=== PATIENT | female | born 1935 | race African-American/Black ===

== ENCOUNTER 2021-01-10 10:44 | Inpatient (IN) | payer MEDICARE, OTHER ==
[2021-01-10 12:25] LABS: BASO % 0.3 % (0-2.0); HEMATOCRIT 43.2 % (32.4-45.2); HEMOGLOBIN 14.5 GM/dL (10.7-15.3); MCH 31.1 pg (25.7-33.7); MCHC 33.6 g/dl (32.0-36.0); MEAN CELL VOLUME 92.6 fl (80-96); MEAN PLT VOLUME 9.3 fl (7.5-11.1); NEUT % 82.7 % (42.8-82.8); PLATELET COUNT 242 K/MM3 (134-434); RBC 4.66 M/mm3 (3.60-5.2); RDW 13.2 % (11.6-15.6); WHITE BLOOD COUNT 7.1 K/mm3 (4.0-10.0)
[2021-01-10 12:28] LABS: EPI CELLS >36 /uL (0-25.1); HYALINE CASTS 9 /uL (0-3.1); URINE APPEARANCE CLOUDY; URINE BACTERIA 374 /uL (0-1359); URINE BILIRUBIN NEGATIVE (NEGATIVE); URINE COLOR YELLOW; URINE GLUCOSE (UA) NEGATIVE (NEGATIVE); URINE KETONE TRACE (NEGATIVE); URINE LEUK ESTERASE TRACE (NEGATIVE); URINE NITRITE NEGATIVE (NEGATIVE); URINE PROTEIN TRACE (NEGATIVE); URINE RBC 68 /uL (0-23.9); URINE UROBILINOGEN 4.0 E.U/dl mg/dL (0.2-1.0); URINE WBC 33 /uL (0-25.8)
[2021-01-10 12:49] LABS: CHLORIDE 92 mmol/L (98-107); SODIUM 136 mmol/L (136-145)
[2021-01-10 12:50] LABS: CALCIUM 9.5 mg/dL (8.5-10.1)
[2021-01-10 12:51] LABS: ALBUMIN 3.2 g/dl (3.4-5.0); BLOOD UREA NITROGEN 8.8 mg/dL (7-18); CO2 37 mmol/L (21-32); GLUCOSE,RANDOM 166 mg/dL (74-106)
[2021-01-10 12:54] LABS: CREATININE 0.7 mg/dL (0.55-1.3); SGOT/AST 18 U/L (15-37); SGPT/ALT 13 U/L (13-61)
[2021-01-10 12:56] LABS: BILIRUBIN,TOTAL 0.7 mg/dL (0.2-1)
[2021-01-10 12:57] LABS: ALK PHOS 98 U/L (45-117)
[2021-01-10 12:59] LABS: N-TERMINAL BNP 112.2 pg/ml (5-450)
[2021-01-10 13:12] LABS: ANION GAP 7 MMOL/L (8-16)
[2021-01-10] MEDS ORDERED: SODIUM CHLORIDE 1,000 ML IV STA (13:23)
[2021-01-10] MEDS ORDERED: ONDANSETRON 4 MG/2 ML VIAL IVPB ONE (13:24)
[2021-01-10] MEDS ORDERED: POTASSIUM CHLORIDE TABS 20 MEQ TABLET.ER (FP) PO ONE ×3 (13:24→14:26)
[2021-01-10] MEDS ORDERED: POTASSIUM CHLORIDE 20 MEQ PREMIX IVPB 100 ML IVPB ONE (13:24)
[2021-01-10] MEDS ORDERED: KCL 10 MEQ IVPB 20 MEQ/200 ML INFUS.BAG IVPB ONE (14:17)
[2021-01-10] MEDS ORDERED: ONDANSETRON 4 MG/2 ML VIAL ONE (14:17)
[2021-01-10] MEDS ORDERED: CEFTRIAXONE 1,000 MG in DEXTROSE 5%-WATER - 50 ML IVPB ONE (18:50)
[2021-01-10] MEDS ORDERED: CEFTRIAXONE 1 GM/50 ML BAG ONE (19:36)
[2021-01-10] MEDS: DEXTROSE 5%-0.45% SALINE 1,000 ML IV SCH (23:10)
[2021-01-11 08:05] LABS: BASO % 0.5 % (0-2.0); EOS % 0.3 % (0-4.5); HEMATOCRIT 37.1 % (32.4-45.2); HEMOGLOBIN 12.6 GM/dL (10.7-15.3); LYMPH % 18.3 % (8-40); MCH 31.5 pg (25.7-33.7); MEAN CELL VOLUME 92.5 fl (80-96); MEAN PLT VOLUME 9.4 fl (7.5-11.1); MONO % 9.6 % (3.8-10.2); NEUT % 71.3 % (42.8-82.8); PLATELET COUNT 209 K/MM3 (134-434); RBC 4.01 M/mm3 (3.60-5.2); RDW 13.3 % (11.6-15.6); WHITE BLOOD COUNT 6.8 K/mm3 (4.0-10.0)
[2021-01-11 08:12] LABS: CALCIUM 8.7 mg/dL (8.5-10.1)
[2021-01-11 08:13] LABS: ALBUMIN 2.8 g/dl (3.4-5.0)
[2021-01-11 08:16] LABS: CREATININE 0.6 mg/dL (0.55-1.3)
[2021-01-11 08:17] LABS: BILIRUBIN,TOTAL 0.6 mg/dL (0.2-1); TOT PROT 5.9 g/dl (6.4-8.2)
[2021-01-11] MEDS ORDERED: cefTRIAXone SODIUM 1 GM VIAL ONE (08:49)
[2021-01-11] MEDS ORDERED: DEXTROSE 5%-WATER - 50 ML IVPB ONE (08:50)
[2021-01-11] MEDS ORDERED: POTASSIUM CHLORIDE TABS 20 MEQ TABLET.ER (FP) PO ONE (09:15)
[2021-01-11] MEDS: ENOXAPARIN NA (PORCINE) 40 MG/0.4 ML DISP.SYRIN SQ SCH (09:21)
[2021-01-11] MEDS ORDERED: FLU VACCINE (FLULAVAL) PF 60 MCG/0.5 ML SYRINGE 2020-2021 IM ONE (10:00)
[2021-01-11] MEDS ORDERED: CEFTRIAXONE 1 GM in DEXTROSE 5%-WATER - 50 ML IVPB SCH (10:00)
[2021-01-11] MEDS: POLYETHYLENE GLYCOL 3350 119 GM BTL PO SCH (17:21)
[2021-01-11] MEDS: DEXTROSE 5%-0.45% SALINE 1,000 ML IV SCH (17:22)
[2021-01-11] MEDS: ONDANSETRON 4 MG/2 ML VIAL IVPUSH PRN (17:24)
[2021-01-12 08:18] LABS: BASO % 0.6 % (0-2.0); EOS % 0.6 % (0-4.5); HEMATOCRIT 36.7 % (32.4-45.2); HEMOGLOBIN 12.6 GM/dL (10.7-15.3); MCH 31.9 pg (25.7-33.7); MCHC 34.4 g/dl (32.0-36.0); MEAN CELL VOLUME 92.8 fl (80-96); MEAN PLT VOLUME 8.8 fl (7.5-11.1); NEUT % 63.8 % (42.8-82.8); PLATELET COUNT 227 K/MM3 (134-434); RBC 3.96 M/mm3 (3.60-5.2); RDW 13.4 % (11.6-15.6); WHITE BLOOD COUNT 6.3 K/mm3 (4.0-10.0)
[2021-01-12 08:41] LABS: ALBUMIN 2.7 g/dl (3.4-5.0); BLOOD UREA NITROGEN 6.6 mg/dL (7-18)
[2021-01-12 08:42] LABS: CALCIUM 8.6 mg/dL (8.5-10.1)
[2021-01-12 08:44] LABS: CREATININE 0.7 mg/dL (0.55-1.3)
[2021-01-12 08:46] LABS: BILIRUBIN,TOTAL 0.5 mg/dL (0.2-1); TOT PROT 5.9 g/dl (6.4-8.2)
[2021-01-12] MEDS: POLYETHYLENE GLYCOL 3350 119 GM BTL PO SCH (09:01)
[2021-01-12] MEDS: ENOXAPARIN NA (PORCINE) 40 MG/0.4 ML DISP.SYRIN SQ SCH (09:01)
[2021-01-12] MEDS ORDERED: POTASSIUM CHLORIDE TABS 20 MEQ TABLET.ER (FP) PO ONE (13:30)
[2021-01-12 14:50] VITALS: BMI 34.2
[2021-01-12] MEDS: AMINO ACIDS/PROTEIN HYDROLYS 30 ML LIQUID.PKT PO SCH (17:27)
[2021-01-12] MEDS: BACITRACIN 15 GM TUBE TOPICAL OINTMENT TP SCH (21:35)
[2021-01-13 08:23] LABS: EOS % 0.5 % (0-4.5); HEMOGLOBIN 12.9 GM/dL (10.7-15.3); LYMPH % 26.5 % (8-40); MCH 31.8 pg (25.7-33.7); MEAN CELL VOLUME 93.4 fl (80-96); MEAN PLT VOLUME 8.9 fl (7.5-11.1); MONO % 9.4 % (3.8-10.2); NEUT % 62.6 % (42.8-82.8); PLATELET COUNT 230 K/MM3 (134-434); RBC 4.07 M/mm3 (3.60-5.2); RDW 13.5 % (11.6-15.6); WHITE BLOOD COUNT 6.5 K/mm3 (4.0-10.0)
[2021-01-13 08:46] LABS: ALBUMIN 2.9 g/dl (3.4-5.0); CALCIUM 9.4 mg/dL (8.5-10.1)
[2021-01-13 08:47] LABS: BLOOD UREA NITROGEN 13.2 mg/dL (7-18)
[2021-01-13 08:51] LABS: BILIRUBIN,TOTAL 0.6 mg/dL (0.2-1); CREATININE 0.7 mg/dL (0.55-1.3); TOT PROT 6.4 g/dl (6.4-8.2)
[2021-01-13] MEDS: AMINO ACIDS/PROTEIN HYDROLYS 30 ML LIQUID.PKT PO SCH ×2 (09:05→16:49)
[2021-01-13] MEDS: ENOXAPARIN NA (PORCINE) 40 MG/0.4 ML DISP.SYRIN SQ SCH (09:06)
[2021-01-13] MEDS: POLYETHYLENE GLYCOL 3350 119 GM BTL PO SCH (09:06)
[2021-01-13] MEDS: MULTIVITAMINS THER W-MINERALS COMBO TABLET (FP) PO SCH (09:07)
[2021-01-13] MEDS: BACITRACIN 15 GM TUBE TOPICAL OINTMENT TP SCH ×2 (09:08→21:17)
[2021-01-13] MEDS: MAG HYDROX/AL HYDROX/SIMETH 30 ML UNIT-DOSE CUP PO PRN (15:35)
[2021-01-14] MEDS: ENOXAPARIN NA (PORCINE) 40 MG/0.4 ML DISP.SYRIN SQ SCH (10:49)
[2021-01-14] MEDS: POLYETHYLENE GLYCOL 3350 119 GM BTL PO SCH (10:49)
[2021-01-14] MEDS: AMINO ACIDS/PROTEIN HYDROLYS 30 ML LIQUID.PKT PO SCH ×2 (10:49→16:49)
[2021-01-14] MEDS: MULTIVITAMINS THER W-MINERALS COMBO TABLET (FP) PO SCH (10:49)
[2021-01-14] MEDS: BACITRACIN 15 GM TUBE TOPICAL OINTMENT TP SCH ×2 (10:49→22:23)
[2021-01-15] MEDS: ENOXAPARIN NA (PORCINE) 40 MG/0.4 ML DISP.SYRIN SQ SCH (10:36)
[2021-01-15] MEDS: AMINO ACIDS/PROTEIN HYDROLYS 30 ML LIQUID.PKT PO SCH ×2 (10:36→17:38)
[2021-01-15] MEDS: BACITRACIN 15 GM TUBE TOPICAL OINTMENT TP SCH ×2 (10:36→22:08)
[2021-01-15] MEDS: MULTIVITAMINS THER W-MINERALS COMBO TABLET (FP) PO SCH (10:37)
[2021-01-15] MEDS: POLYETHYLENE GLYCOL 3350 119 GM BTL PO SCH (10:37)
[2021-01-15] MEDS: MAG HYDROX/AL HYDROX/SIMETH 30 ML UNIT-DOSE CUP PO PRN (17:42)
[2021-01-15] MEDS ORDERED: PT OWN MED DRAWER 7, Y5N ONE (22:00)
[2021-01-16] MEDS: AMINO ACIDS/PROTEIN HYDROLYS 30 ML LIQUID.PKT PO SCH ×2 (10:36→16:53)
[2021-01-16] MEDS: ENOXAPARIN NA (PORCINE) 40 MG/0.4 ML DISP.SYRIN SQ SCH (10:37)
[2021-01-16] MEDS: BACITRACIN 15 GM TUBE TOPICAL OINTMENT TP SCH ×2 (10:37→21:18)
[2021-01-16] MEDS: MULTIVITAMINS THER W-MINERALS COMBO TABLET (FP) PO SCH (10:38)
[2021-01-16] MEDS: POLYETHYLENE GLYCOL 3350 119 GM BTL PO SCH (10:38)
[2021-01-17 08:23] LABS: BASO % 0.8 % (0-2.0); EOS % 0.4 % (0-4.5); HEMATOCRIT 39.2 % (32.4-45.2); HEMOGLOBIN 13.4 GM/dL (10.7-15.3); LYMPH % 24.3 % (8-40); MCH 31.9 pg (25.7-33.7); MCHC 34.1 g/dl (32.0-36.0); MEAN CELL VOLUME 93.5 fl (80-96); MEAN PLT VOLUME 9.2 fl (7.5-11.1); NEUT % 66.5 % (42.8-82.8); PLATELET COUNT 231 K/MM3 (134-434); RBC 4.19 M/mm3 (3.60-5.2); RDW 13.6 % (11.6-15.6); WHITE BLOOD COUNT 6.7 K/mm3 (4.0-10.0)
[2021-01-17 08:29] LABS: CALCIUM 9.6 mg/dL (8.5-10.1)
[2021-01-17 08:30] LABS: BLOOD UREA NITROGEN 21.6 mg/dL (7-18)
[2021-01-17 08:33] LABS: CREATININE 0.6 mg/dL (0.55-1.3)
[2021-01-17 08:34] LABS: BILIRUBIN,TOTAL 0.4 mg/dL (0.2-1); TOT PROT 6.8 g/dl (6.4-8.2)
[2021-01-17] MEDS: POLYETHYLENE GLYCOL 3350 119 GM BTL PO SCH (11:23)
[2021-01-17] MEDS: ENOXAPARIN NA (PORCINE) 40 MG/0.4 ML DISP.SYRIN SQ SCH (11:36)
[2021-01-17] MEDS: AMINO ACIDS/PROTEIN HYDROLYS 30 ML LIQUID.PKT PO SCH ×2 (11:37→17:20)
[2021-01-17] MEDS: MULTIVITAMINS THER W-MINERALS COMBO TABLET (FP) PO SCH (11:37)
[2021-01-17] MEDS: BACITRACIN 15 GM TUBE TOPICAL OINTMENT TP SCH ×2 (11:37→21:15)
[2021-01-17] MEDS: ONDANSETRON 4 MG/2 ML VIAL IVPUSH PRN (17:39)
[2021-01-17] MEDS: SODIUM CHLORIDE NASAL SPRAY 44 ML BOTTLE NS PRN (21:14)
[2021-01-18] MEDS: AMINO ACIDS/PROTEIN HYDROLYS 30 ML LIQUID.PKT PO SCH ×2 (10:32→16:40)
[2021-01-18] MEDS: MULTIVITAMINS THER W-MINERALS COMBO TABLET (FP) PO SCH (10:32)
[2021-01-18] MEDS: POLYETHYLENE GLYCOL 3350 119 GM BTL PO SCH (10:32)
[2021-01-18] MEDS: BACITRACIN 15 GM TUBE TOPICAL OINTMENT TP SCH ×2 (10:33→22:06)
[2021-01-18] MEDS: SODIUM CHLORIDE NASAL SPRAY 44 ML BOTTLE NS PRN (16:40)
[2021-01-18 20:07] VITALS: BP 143/67; PULSE 87; TEMP 98.1
== END 2021-01-18 23:00 | DRG 690 ==
LOC: JER 10:44 → JERBED 19:32 → J7W 23:27
PROVIDERS: ADMIT Internal Medicine; ATTEND Internal Medicine
DX: N39.0 Urinary tract infection, site not specified (principal); R53.1 Weakness; R82.71 Bacteriuria; I10 Essential (primary) hypertension; E11.9 Type 2 diabetes mellitus without complications; M19.90 Unspecified osteoarthritis, unspecified site; E87.6 Hypokalemia; E66.9 Obesity, unspecified; Z68.34 Body mass index [BMI] 34.0-34.9, adult
CPT/HCPCS: 36415; 71045-TC-FY; 80053; 81003; 82550; 83036; 83605; 83880; 84484; 85025; 87086; 93005; 93010; 97116-GP; 97161-GP; 99285-25; C9803; U0003; U0005

== ENCOUNTER 2021-07-11 15:12 | Inpatient (IN) | payer MEDICARE, OTHER ==
[2021-07-11] MEDS ORDERED: ACETAMINOPHEN 1000 MG/100 ML VIAL IVPB ONE (16:53)
[2021-07-11] MEDS ORDERED: ACETAMINOPHEN INJECTION 100 ML IVPB ONE (18:10)
[2021-07-11 18:23] LABS: BASO % 0.6 % (0-2.0); HEMATOCRIT 30.9 % (32.4-45.2); HEMOGLOBIN 10.4 GM/dL (10.7-15.3); LYMPH % 4.1 % (8-40); MCH 31.3 pg (25.7-33.7); MCHC 33.7 g/dl (32.0-36.0); MEAN CELL VOLUME 92.6 fl (80-96); MEAN PLT VOLUME 8.3 fl (7.5-11.1); MONO % 6.7 % (3.8-10.2); NEUT % 88.6 % (42.8-82.8); PLATELET COUNT 264 10^3/uL (134-434); RBC 3.34 M/mm3 (3.60-5.2); RDW 14.1 % (11.6-15.6)
[2021-07-11] MEDS ORDERED: VANCOMYCIN 1 GM in D5W (PRE-DOCKED) 1,000 MG/250 ML IVPB ONE (18:28)
[2021-07-11] MEDS ORDERED: VANCOMYCIN 1 GRAM (PRE-DOCKED) 1,000 MG/250 ML BAG IVPB ONE (18:31)
[2021-07-11 18:36] LABS: INR 1.06 (0.83-1.09); PROTHROMBIN TIME (PATIENT) 13.1 SEC (9.7-13.0)
[2021-07-11 18:38] LABS: ACTIVATED PTT 24.9 SECONDS (25.2-36.5)
[2021-07-11] MEDS ORDERED: TETANUS AND DIPHTHERIA TOXOID 0.5 ML DISP.SYRIN IM ONE (18:51)
[2021-07-11 18:54] LABS: ALBUMIN 2.7 g/dl (3.4-5.0); BLOOD UREA NITROGEN 10.1 mg/dL (7-18); CALCIUM 8.8 mg/dL (8.5-10.1)
[2021-07-11 18:57] LABS: CREATININE 0.6 mg/dL (0.55-1.3)
[2021-07-11 18:59] LABS: BILIRUBIN,TOTAL 1.4 mg/dL (0.2-1); TOT PROT 6.8 g/dl (6.4-8.2)
[2021-07-11] MEDS ORDERED: DIPHTH,PERTUSS(ACELL),TET 0.5 ML DISP.SYRIN IM ONE (20:25)
[2021-07-11] MEDS ORDERED: morphine CARPU-JECT 2 MG/1 ML DISP.SYRIN IVPUSH ONE (21:33)
[2021-07-11] MEDS ORDERED: morphine SULFATE 4 MG/ML VIAL ONE (22:56)
[2021-07-11 22:59] LABS: ERYTHROCYTE SEDIMENTATION RATE 77 mm/hr (0-30)
[2021-07-12] MEDS: morphine SULFATE 4 MG/ML VIAL IVPUSH PRN ×3 (06:22→18:30)
[2021-07-12 08:56] LABS: BASO % 0.5 % (0-2.0); EOS % 0.1 % (0-4.5); HEMATOCRIT 27.7 % (32.4-45.2); HEMOGLOBIN 9.5 GM/dL (10.7-15.3); LYMPH % 8.8 % (8-40); MCH 31.9 pg (25.7-33.7); MCHC 34.2 g/dl (32.0-36.0); MEAN CELL VOLUME 93.3 fl (80-96); MEAN PLT VOLUME 8.9 fl (7.5-11.1); MONO % 9.4 % (3.8-10.2); NEUT % 81.2 % (42.8-82.8); PLATELET COUNT 230 10^3/uL (134-434); RBC 2.97 M/mm3 (3.60-5.2); WHITE BLOOD COUNT 11.2 K/mm3 (4.0-10.0)
[2021-07-12 09:12] LABS: ALBUMIN 2.4 g/dl (3.4-5.0); BLOOD UREA NITROGEN 10.3 mg/dL (7-18); CALCIUM 8.5 mg/dL (8.5-10.1)
[2021-07-12 09:15] LABS: CREATININE 0.4 mg/dL (0.55-1.3)
[2021-07-12 09:17] LABS: BILIRUBIN,TOTAL 1.2 mg/dL (0.2-1); TOT PROT 5.8 g/dl (6.4-8.2)
[2021-07-12] MEDS ORDERED: cefTRIAXone SODIUM 1 GM VIAL ONE (11:14)
[2021-07-12] MEDS ORDERED: DEXTROSE 5%-WATER - 50 ML IVPB ONE (11:14)
[2021-07-12] MEDS: ENOXAPARIN NA (PORCINE) 40 MG/0.4 ML DISP.SYRIN SQ SCH (11:33)
[2021-07-12] MEDS: CEFTRIAXONE 1 GM in DEXTROSE 5%-WATER - 50 ML IVPB SCH (11:33)
[2021-07-12] MEDS: KCL 10 MEQ IVPB 10 MEQ/100 ML INFUS.BAG IVPB SCH ×3 (11:33→15:04)
[2021-07-13] MEDS ORDERED: cefTRIAXone SODIUM 1 GM VIAL ONE (09:25)
[2021-07-13] MEDS ORDERED: DEXTROSE 5%-WATER - 50 ML IVPB ONE (09:25)
[2021-07-13] MEDS: CEFTRIAXONE 1 GM in DEXTROSE 5%-WATER - 50 ML IVPB SCH (09:30)
[2021-07-13] MEDS: ENOXAPARIN NA (PORCINE) 40 MG/0.4 ML DISP.SYRIN SQ SCH (09:30)
[2021-07-13 13:48] VITALS: BMI 31.4
[2021-07-13] MEDS: AMINO ACIDS/PROTEIN HYDROLYS 30 ML LIQUID.PKT PO SCH (17:11)
[2021-07-13] MEDS: morphine SULFATE 4 MG/ML VIAL IVPUSH PRN (20:02)
[2021-07-13] MEDS ORDERED: POTASSIUM CHLORIDE TABS 20 MEQ TABLET.ER (FP) PO ONE (22:17)
[2021-07-14] MEDS ORDERED: cefTRIAXone SODIUM 1 GM VIAL ONE (10:59)
[2021-07-14] MEDS ORDERED: DEXTROSE 5%-WATER - 50 ML IVPB ONE (10:59)
[2021-07-14] MEDS: ENOXAPARIN NA (PORCINE) 40 MG/0.4 ML DISP.SYRIN SQ SCH (11:10)
[2021-07-14] MEDS: AMINO ACIDS/PROTEIN HYDROLYS 30 ML LIQUID.PKT PO SCH ×2 (11:11→17:30)
[2021-07-14] MEDS: CEFTRIAXONE 1 GM in DEXTROSE 5%-WATER - 50 ML IVPB SCH (11:11)
[2021-07-14] MEDS: MULTIVITAMINS THER W-MINERALS COMBO TABLET (FP) PO SCH (11:11)
[2021-07-14 11:45] LABS: BASO % 0.8 % (0-2.0); EOS % 0.3 % (0-4.5); HEMATOCRIT 26.3 % (32.4-45.2); LYMPH % 13.2 % (8-40); MCH 31.5 pg (25.7-33.7); MCHC 34.3 g/dl (32.0-36.0); MEAN CELL VOLUME 91.9 fl (80-96); MEAN PLT VOLUME 8.1 fl (7.5-11.1); MONO % 8.9 % (3.8-10.2); NEUT % 76.8 % (42.8-82.8); PLATELET COUNT 323 10^3/uL (134-434); RBC 2.86 M/mm3 (3.60-5.2); RDW 13.8 % (11.6-15.6); WHITE BLOOD COUNT 7.1 K/mm3 (4.0-10.0)
[2021-07-14 12:15] LABS: ALBUMIN 2.2 g/dl (3.4-5.0); BLOOD UREA NITROGEN 11.3 mg/dL (7-18); CALCIUM 8.3 mg/dL (8.5-10.1)
[2021-07-14 12:19] LABS: CREATININE 0.5 mg/dL (0.55-1.3)
[2021-07-15] MEDS: AMINO ACIDS/PROTEIN HYDROLYS 30 ML LIQUID.PKT PO SCH ×2 (08:17→17:22)
[2021-07-15] MEDS ORDERED: cefTRIAXone SODIUM 1 GM VIAL ONE (10:58)
[2021-07-15] MEDS ORDERED: DEXTROSE 5%-WATER - 50 ML IVPB ONE (10:58)
[2021-07-15] MEDS: CEFTRIAXONE 1 GM in DEXTROSE 5%-WATER - 50 ML IVPB SCH (11:04)
[2021-07-15] MEDS: ENOXAPARIN NA (PORCINE) 40 MG/0.4 ML DISP.SYRIN SQ SCH (11:04)
[2021-07-15] MEDS: MULTIVITAMINS THER W-MINERALS COMBO TABLET (FP) PO SCH (11:04)
[2021-07-16] MEDS ORDERED: cefTRIAXone SODIUM 1 GM VIAL ONE (08:58)
[2021-07-16] MEDS ORDERED: DEXTROSE 5%-WATER - 50 ML IVPB ONE (08:58)
[2021-07-16] MEDS: AMINO ACIDS/PROTEIN HYDROLYS 30 ML LIQUID.PKT PO SCH ×2 (09:00→18:04)
[2021-07-16] MEDS: ENOXAPARIN NA (PORCINE) 40 MG/0.4 ML DISP.SYRIN SQ SCH (09:00)
[2021-07-16] MEDS: MULTIVITAMINS THER W-MINERALS COMBO TABLET (FP) PO SCH (09:01)
[2021-07-16] MEDS: CEFTRIAXONE 1 GM in DEXTROSE 5%-WATER - 50 ML IVPB SCH (09:01)
[2021-07-16 17:26] LABS: EPI CELLS >36 /uL (0-25.1); HYALINE CASTS 0 /uL (0-3.1); PH,URINE 6.5 (5.0-8.0); URINE APPEARANCE CLOUDY; URINE BACTERIA 879 /uL (0-1359); URINE BILIRUBIN 1+ (NEGATIVE); URINE COLOR DK YELLOW; URINE GLUCOSE (UA) NEGATIVE (NEGATIVE); URINE KETONE NEGATIVE (NEGATIVE); URINE LEUK ESTERASE 3+ (NEGATIVE); URINE NITRITE NEGATIVE (NEGATIVE); URINE PROTEIN TRACE (NEGATIVE); URINE UROBILINOGEN >=8.0 E.U./dl mg/dL (0.2-1.0); URINE WBC 78 /uL (0-25.8)
[2021-07-16 19:12] LABS: URINE CRYSTALS NEGATIVE /hpf; URINE RBC 372 /uL (0-23.9)
[2021-07-17 09:10] LABS: CALCIUM 8.2 mg/dL (8.5-10.1)
[2021-07-17 09:11] LABS: ALBUMIN 2.3 g/dl (3.4-5.0); BLOOD UREA NITROGEN 12.6 mg/dL (7-18)
[2021-07-17] MEDS ORDERED: DEXTROSE 5%-WATER - 50 ML IVPB ONE (09:13)
[2021-07-17] MEDS ORDERED: cefTRIAXone SODIUM 1 GM VIAL ONE (09:13)
[2021-07-17 09:14] LABS: CREATININE 0.4 mg/dL (0.55-1.3)
[2021-07-17] MEDS: MULTIVITAMINS THER W-MINERALS COMBO TABLET (FP) PO SCH (09:14)
[2021-07-17] MEDS: AMINO ACIDS/PROTEIN HYDROLYS 30 ML LIQUID.PKT PO SCH ×2 (09:14→17:27)
[2021-07-17] MEDS: CEFTRIAXONE 1 GM in DEXTROSE 5%-WATER - 50 ML IVPB SCH (09:15)
[2021-07-17] MEDS: ENOXAPARIN NA (PORCINE) 40 MG/0.4 ML DISP.SYRIN SQ SCH (09:15)
[2021-07-17 09:16] LABS: BILIRUBIN,TOTAL 0.6 mg/dL (0.2-1)
[2021-07-17 10:15] LABS: EOS % 0.5 % (0-4.5); HEMATOCRIT 26.5 % (32.4-45.2); HEMOGLOBIN 9.1 GM/dL (10.7-15.3); MCH 31.8 pg (25.7-33.7); MCHC 34.2 g/dl (32.0-36.0); MEAN CELL VOLUME 92.7 fl (80-96); MEAN PLT VOLUME 7.8 fl (7.5-11.1); MONO % 9.6 % (3.8-10.2); NEUT % 72.9 % (42.8-82.8); PLATELET COUNT 344 10^3/uL (134-434); RBC 2.85 M/mm3 (3.60-5.2); RDW 14.4 % (11.6-15.6); WHITE BLOOD COUNT 7.3 K/mm3 (4.0-10.0)
[2021-07-18] MEDS: AMINO ACIDS/PROTEIN HYDROLYS 30 ML LIQUID.PKT PO SCH ×2 (08:51→18:51)
[2021-07-18 08:58] LABS: BASO % 0.9 % (0-2.0); EOS % 0.3 % (0-4.5); HEMATOCRIT 28.1 % (32.4-45.2); HEMOGLOBIN 9.6 GM/dL (10.7-15.3); MCH 32.4 pg (25.7-33.7); MCHC 34.2 g/dl (32.0-36.0); MEAN CELL VOLUME 94.7 fl (80-96); MEAN PLT VOLUME 7.6 fl (7.5-11.1); MONO % 9.3 % (3.8-10.2); NEUT % 70.5 % (42.8-82.8); PLATELET COUNT 416 10^3/uL (134-434); RBC 2.96 M/mm3 (3.60-5.2); RDW 14.6 % (11.6-15.6)
[2021-07-18 09:36] LABS: CALCIUM 8.6 mg/dL (8.5-10.1)
[2021-07-18 09:37] LABS: ALBUMIN 2.4 g/dl (3.4-5.0); BLOOD UREA NITROGEN 14.6 mg/dL (7-18)
[2021-07-18 09:40] LABS: CREATININE 0.5 mg/dL (0.55-1.3)
[2021-07-18 09:41] LABS: BILIRUBIN,TOTAL 0.7 mg/dL (0.2-1); TOT PROT 6.2 g/dl (6.4-8.2)
[2021-07-18] MEDS ORDERED: DEXTROSE 5%-WATER - 50 ML IVPB ONE (10:00)
[2021-07-18] MEDS ORDERED: cefTRIAXone SODIUM 1 GM VIAL ONE (10:00)
[2021-07-18] MEDS: MULTIVITAMINS THER W-MINERALS COMBO TABLET (FP) PO SCH (10:04)
[2021-07-18] MEDS: ENOXAPARIN NA (PORCINE) 40 MG/0.4 ML DISP.SYRIN SQ SCH (10:04)
[2021-07-18] MEDS: CEFTRIAXONE 1 GM in DEXTROSE 5%-WATER - 50 ML IVPB SCH (10:04)
[2021-07-19 08:09] LABS: BASO % 0.6 % (0-2.0); EOS % 0.6 % (0-4.5); HEMATOCRIT 26.7 % (32.4-45.2); HEMOGLOBIN 9.2 GM/dL (10.7-15.3); LYMPH % 16.2 % (8-40); MCH 32.1 pg (25.7-33.7); MCHC 34.3 g/dl (32.0-36.0); MEAN CELL VOLUME 93.7 fl (80-96); MEAN PLT VOLUME 7.8 fl (7.5-11.1); NEUT % 74.6 % (42.8-82.8); PLATELET COUNT 410 10^3/uL (134-434); RBC 2.85 M/mm3 (3.60-5.2); RDW 14.9 % (11.6-15.6); WHITE BLOOD COUNT 8.6 K/mm3 (4.0-10.0)
[2021-07-19 08:29] LABS: ALBUMIN 2.4 g/dl (3.4-5.0); BLOOD UREA NITROGEN 16.5 mg/dL (7-18); CALCIUM 8.3 mg/dL (8.5-10.1)
[2021-07-19 08:33] LABS: CREATININE 0.4 mg/dL (0.55-1.3)
[2021-07-19 08:34] LABS: BILIRUBIN,TOTAL 0.8 mg/dL (0.2-1)
[2021-07-19 08:35] LABS: TOT PROT 5.8 g/dl (6.4-8.2)
[2021-07-19] MEDS: AMINO ACIDS/PROTEIN HYDROLYS 30 ML LIQUID.PKT PO SCH (09:03)
[2021-07-19 09:07] VITALS: BP 107/51; PULSE 90; TEMP 98.8
[2021-07-19] MEDS: MULTIVITAMINS THER W-MINERALS COMBO TABLET (FP) PO SCH (09:29)
[2021-07-19] MEDS: CEFTRIAXONE 1 GM in DEXTROSE 5%-WATER - 50 ML IVPB SCH (09:29)
== END 2021-07-19 11:21 | disposition short-term general hospital (02) | DRG 560 ==
LOC: JER 15:12 → JERBED 21:03 → J6S 23:53
PROVIDERS: ADMIT Internal Medicine; ATTEND Internal Medicine
DX: M97.11XA Periprosthetic fracture around internal prosthetic right knee joint, initial encounter (principal); S82.191A Other fracture of upper end of right tibia, initial encounter for closed fracture; L03.115 Cellulitis of right lower limb; S82.491A Other fracture of shaft of right fibula, initial encounter for closed fracture; I10 Essential (primary) hypertension; E11.9 Type 2 diabetes mellitus without complications; M25.561 Pain in right knee; M17.11 Unilateral primary osteoarthritis, right knee; E66.9 Obesity, unspecified; Z68.31 Body mass index [BMI] 31.0-31.9, adult; B95.7 Other staphylococcus as the cause of diseases classified elsewhere; W18.39XA Other fall on same level, initial encounter; Y92.098 Other place in other non-institutional residence as the place of occurrence of the external cause
CPT/HCPCS: 36415; 71045-TC-FY; 73502-TC-RT-FY; 73562-TC-RT-FY; 73590-TC-RT-FY; 73610-TC-RT-FY; 73630-TC-RT-FY; 80053; 81003; 83880; 85025; 85610; 85651; 85730; 86140; 87040; 87086; 93005; 93010; 93970-TC; 93971-TC; 99285-25; C9803; J0131; U0003; U0005

== ENCOUNTER 2023-02-17 12:20 | Emergency (ER) | payer MEDICARE, OTHER ==
[2023-02-17 12:55] VITALS: BP 115/67; PULSE 107; RESP 18; TEMP 99.1; BMI 28.6
[2023-02-17] MEDS ORDERED: DOXYCYCLINE HYCLATE 100 MG CAPSULE PO ONE ×2 (14:21→14:30)
== END 2023-02-18 00:08 | disposition home or self-care (01) ==
LOC: JER 12:20
DX: R09.81 Nasal congestion (principal); N63.13 Unspecified lump in the right breast, lower outer quadrant
CPT/HCPCS: 0241U-QW; 99283-25

== ENCOUNTER → 2023-04-09 | Day surgery (SDC) | payer MEDICARE, OTHER | END | disposition home or self-care (01) | LOC: JRADUS-SUR 10:01 | PROVIDERS: ATTEND Registered Nurse | PROC: 0H9T3ZX Drainage of Right Breast, Percutaneous Approach, Diagnostic (ICD-10-PCS; principal; 2023-04-09) | DX: C50.911 Malignant neoplasm of unspecified site of right female breast (principal) | CPT/HCPCS: 19083; 87899 ==

== ENCOUNTER 2023-05-05 13:30 | Inpatient (IN) | payer MEDICARE, OTHER ==
[2023-05-05 15:26] LABS: VENOUS O2 SATURATION 77.3 % (70-80); VENOUS PCO2 53.3 mmHg (38-52); VENOUS PH 7.558 (7.310-7.410)
[2023-05-05 15:33] LABS: INR 1.12 (0.83-1.09)
[2023-05-05 15:34] LABS: BASO % 1.1 % (0-2.0); EOS % 0.1 % (0-4.5); HEMATOCRIT 40.1 % (32.4-45.2); HEMOGLOBIN 13.4 GM/dL (10.7-15.3); MCH 30.2 pg (25.7-33.7); MCHC 33.4 g/dl (32.0-36.0); MEAN CELL VOLUME 90.4 fl (80-96); MEAN PLT VOLUME 8.8 fl (7.5-11.1); MONO % 6.4 % (3.8-10.2); NEUT % 75.4 % (42.8-82.8); PLATELET COUNT 304 10^3/uL (134-434); RBC 4.44 M/mm3 (3.60-5.2); RDW 15.1 % (11.6-15.6); WHITE BLOOD COUNT 7.7 K/mm3 (4.0-10.0)
[2023-05-05 15:35] LABS: ACTIVATED PTT 27.3 SECONDS (25.2-36.5)
[2023-05-05 16:07] LABS: CHLORIDE 85 mmol/L (98-107); SODIUM 138 mmol/L (136-145)
[2023-05-05 16:11] LABS: ALBUMIN 2.6 g/dl (3.4-5.0); CALCIUM 9.4 mg/dL (8.5-10.1); CO2 44 mmol/L (21-32); GLUCOSE,RANDOM 129 mg/dL (74-106)
[2023-05-05 16:13] LABS: SGPT/ALT 22 U/L (13-61)
[2023-05-05 16:14] LABS: CREATININE 0.4 mg/dL (0.55-1.3); SGOT/AST 47 U/L (15-37)
[2023-05-05 16:15] LABS: BILIRUBIN,TOTAL 1.2 mg/dL (0.2-1); TOT PROT 6.5 g/dl (6.4-8.2)
[2023-05-05 16:16] LABS: ALK PHOS 112 U/L (45-117)
[2023-05-05 16:24] LABS: ANION GAP 9 MMOL/L (8-16); POTASSIUM 2.4 mmol/L (3.5-5.1)
[2023-05-05 17:08] LABS: EPI CELLS >36 /uL (0-25.1); HYALINE CASTS 64 /uL (0-3.1); URINE APPEARANCE TURBID; URINE BILIRUBIN 2+ (NEGATIVE); URINE COLOR DK YELLOW; URINE GLUCOSE (UA) NEGATIVE (NEGATIVE); URINE KETONE NEGATIVE (NEGATIVE); URINE LEUK ESTERASE 1+ (NEGATIVE); URINE NITRITE POSITIVE (NEGATIVE); URINE PROTEIN TRACE (NEGATIVE); URINE RBC 415 /uL (0-23.9); URINE WBC 54 /uL (0-25.8)
[2023-05-05 17:25] LABS: URINE BACTERIA 9.3 /uL (0-1359)
[2023-05-05 17:44] LABS: MAGNESIUM 1.9 mg/dL (1.8-2.4)
[2023-05-05] MEDS ORDERED: KCL 10 MEQ IVPB 10 MEQ/100 ML INFUS.BAG IVPB ONE ×2 (18:58→21:33)
[2023-05-05] MEDS ORDERED: CEFTRIAXONE 1 GM/50 ML BAG ONE (18:58)
[2023-05-05] MEDS: KCL 10 MEQ IVPB 10 MEQ/100 ML INFUS.BAG IVPB SCH ×2 (19:39→21:40)
[2023-05-05] MEDS ORDERED: DEXTROSE 5%-0.45% SALINE 1,000 ML IV SCH (22:30)
[2023-05-05] MEDS ORDERED: D5-1/2NS+10 MEQ KCL - 10 MEQ/1,000 ML INFUS.BAG IV SCH (22:30)
[2023-05-06 08:56] LABS: BASO % 0.9 % (0-2.0); EOS % 0.2 % (0-4.5); HEMATOCRIT 39.8 % (32.4-45.2); HEMOGLOBIN 13.2 GM/dL (10.7-15.3); LYMPH % 21.7 % (8-40); MCH 30.2 pg (25.7-33.7); MCHC 33.2 g/dl (32.0-36.0); MEAN PLT VOLUME 9.5 fl (7.5-11.1); MONO % 7.4 % (3.8-10.2); NEUT % 69.8 % (42.8-82.8); PLATELET COUNT 236 10^3/uL (134-434); RBC 4.38 M/mm3 (3.60-5.2); RDW 15.3 % (11.6-15.6); WHITE BLOOD COUNT 7.8 K/mm3 (4.0-10.0)
[2023-05-06] MEDS: CEFTRIAXONE 1 GM in DEXTROSE 5%-WATER - 50 ML IVPB SCH (10:32)
[2023-05-06] MEDS: ENOXAPARIN NA (PORCINE) 40 MG/0.4 ML DISP.SYRIN SQ SCH (10:32)
[2023-05-06] MEDS ORDERED: DEXTROSE 5%-0.45% SALINE 1,000 ML IV SCH (13:00)
[2023-05-06 16:16] LABS: CHLORIDE 85 mmol/L (98-107); SODIUM 138 mmol/L (136-145)
[2023-05-06 16:18] LABS: ALBUMIN 2.4 g/dl (3.4-5.0); BLOOD UREA NITROGEN 12.7 mg/dL (7-18); CO2 43 mmol/L (21-32); GLUCOSE,RANDOM 104 mg/dL (74-106)
[2023-05-06 16:21] LABS: CREATININE 0.4 mg/dL (0.55-1.3); SGPT/ALT 20 U/L (13-61)
[2023-05-06 16:22] LABS: SGOT/AST 48 U/L (15-37)
[2023-05-06 16:23] LABS: TOT PROT 6.1 g/dl (6.4-8.2)
[2023-05-06 16:24] LABS: ALK PHOS 104 U/L (45-117)
[2023-05-06 16:25] LABS: ANION GAP 9 MMOL/L (8-16); POTASSIUM 2.7 mmol/L (3.5-5.1)
[2023-05-06 21:49] LABS: CHLORIDE 85 mmol/L (98-107); SODIUM 137 mmol/L (136-145)
[2023-05-06 21:50] LABS: CALCIUM 8.5 mg/dL (8.5-10.1)
[2023-05-06 21:51] LABS: ALBUMIN 2.1 g/dl (3.4-5.0); BLOOD UREA NITROGEN 11.6 mg/dL (7-18); CO2 44 mmol/L (21-32); GLUCOSE,RANDOM 142 mg/dL (74-106)
[2023-05-06 21:54] LABS: CREATININE 0.5 mg/dL (0.55-1.3); SGOT/AST 39 U/L (15-37); SGPT/ALT 17 U/L (13-61)
[2023-05-06 21:55] LABS: TOT PROT 5.6 g/dl (6.4-8.2)
[2023-05-06 21:56] LABS: BILIRUBIN,TOTAL 0.8 mg/dL (0.2-1)
[2023-05-06 21:57] LABS: ALK PHOS 97 U/L (45-117)
[2023-05-06 22:03] LABS: ANION GAP 8 MMOL/L (8-16); POTASSIUM 2.3 mmol/L (3.5-5.1)
[2023-05-06] MEDS ORDERED: POTASSIUM CHLORIDE TABS 20 MEQ TABLET.ER (FP) PO SCH (22:09)
[2023-05-06] MEDS ORDERED: KCL 10 MEQ IVPB 10 MEQ/100 ML INFUS.BAG IVPB SCH ×2 (22:15→22:30)
[2023-05-06] MEDS ORDERED: POTASSIUM CHLORIDE TABS 20 MEQ TABLET.ER (FP) PO STA (22:27)
[2023-05-06] MEDS: KCL 10 MEQ IVPB 10 MEQ/100 ML INFUS.BAG IVPB SCH ×2 (22:39→23:32)
[2023-05-07 00:01] LABS: MAGNESIUM 1.6 mg/dL (1.8-2.4)
[2023-05-07 00:05] LABS: PHOSPHOROUS 2.7 mg/dL (2.5-4.9)
[2023-05-07] MEDS: KCL 10 MEQ IVPB 10 MEQ/100 ML INFUS.BAG IVPB SCH ×5 (00:38→20:37)
[2023-05-07] MEDS ORDERED: MAGNESIUM SULF 50% (8.12 MEQ/2 ML-1 GM VIAL) IVPB ONE (06:48)
[2023-05-07] MEDS ORDERED: POTASSIUM CHLORIDE TABS 20 MEQ TABLET.ER (FP) PO SCH (10:00)
[2023-05-07] MEDS: CEFTRIAXONE 1 GM in DEXTROSE 5%-WATER - 50 ML IVPB SCH (10:18)
[2023-05-07] MEDS: POTASSIUM CHLORIDE TABS 20 MEQ TABLET.ER (FP) PO SCH (10:18)
[2023-05-07] MEDS: ENOXAPARIN NA (PORCINE) 40 MG/0.4 ML DISP.SYRIN SQ SCH (10:18)
[2023-05-07 11:21] LABS: EOS % 0.3 % (0-4.5); HEMOGLOBIN 12.2 GM/dL (10.7-15.3); LYMPH % 26.2 % (8-40); MCH 30.4 pg (25.7-33.7); MCHC 32.9 g/dl (32.0-36.0); MEAN CELL VOLUME 92.4 fl (80-96); MEAN PLT VOLUME 9.6 fl (7.5-11.1); MONO % 7.4 % (3.8-10.2); NEUT % 65.1 % (42.8-82.8); PLATELET COUNT 236 10^3/uL (134-434); RBC 4.01 M/mm3 (3.60-5.2); RDW 15.6 % (11.6-15.6); WHITE BLOOD COUNT 7.6 K/mm3 (4.0-10.0)
[2023-05-07 11:45] LABS: POTASSIUM 3.5 mmol/L (3.5-5.1)
[2023-05-07 12:14] LABS: ALBUMIN 2.2 g/dl (3.4-5.0); MAGNESIUM 2.4 mg/dL (1.8-2.4)
[2023-05-07 12:15] LABS: CALCIUM 8.5 mg/dL (8.5-10.1)
[2023-05-07 12:17] LABS: CREATININE 0.3 mg/dL (0.55-1.3); PHOSPHOROUS 2.8 mg/dL (2.5-4.9)
[2023-05-07 12:18] LABS: TOT PROT 5.7 g/dl (6.4-8.2)
[2023-05-07] MEDS: D5-NS + 20 MEQ KCL - 20 MEQ/1,000 ML INFUS.BAG IV SCH (12:34)
[2023-05-07 15:41] VITALS: BMI 21.9
[2023-05-07] MEDS: AMINO ACIDS/PROTEIN HYDROLYS 30 ML LIQUID.PKT PO SCH (17:54)
[2023-05-07] MEDS: ASCORBIC ACID 250 MG TABLET (FP) PO SCH (21:22)
[2023-05-07] MEDS ORDERED: ACETAMINOPHEN 325 MG TABLET (FP) PO PRN (23:54)
[2023-05-08] MEDS: AMINO ACIDS/PROTEIN HYDROLYS 30 ML LIQUID.PKT PO SCH ×2 (08:10→16:31)
[2023-05-08] MEDS: CEFTRIAXONE 1 GM in DEXTROSE 5%-WATER - 50 ML IVPB SCH (10:20)
[2023-05-08] MEDS: ENOXAPARIN NA (PORCINE) 40 MG/0.4 ML DISP.SYRIN SQ SCH (10:21)
[2023-05-08] MEDS: ASCORBIC ACID 250 MG TABLET (FP) PO SCH ×2 (10:21→21:18)
[2023-05-08] MEDS: MULTIVITAMINS (DAILY MVI) TABLET (FP) PO SCH (10:21)
[2023-05-08] MEDS: POTASSIUM CHLORIDE TABS 20 MEQ TABLET.ER (FP) PO SCH (10:21)
[2023-05-08 11:49] LABS: POTASSIUM 3.9 mmol/L (3.5-5.1)
[2023-05-08 11:51] LABS: CALCIUM 8.3 mg/dL (8.5-10.1)
[2023-05-08 11:52] LABS: ALBUMIN 1.9 g/dl (3.4-5.0); MAGNESIUM 2.2 mg/dL (1.8-2.4)
[2023-05-08 11:55] LABS: CREATININE 0.3 mg/dL (0.55-1.3)
[2023-05-08 11:56] LABS: BILIRUBIN,TOTAL 0.9 mg/dL (0.2-1); TOT PROT 5.2 g/dl (6.4-8.2)
[2023-05-08] MEDS: D5-NS + 20 MEQ KCL - 20 MEQ/1,000 ML INFUS.BAG IV SCH (14:53)
[2023-05-09] MEDS: AMINO ACIDS/PROTEIN HYDROLYS 30 ML LIQUID.PKT PO SCH ×2 (08:42→17:16)
[2023-05-09] MEDS: CEFTRIAXONE 1 GM in DEXTROSE 5%-WATER - 50 ML IVPB SCH (10:43)
[2023-05-09] MEDS: ENOXAPARIN NA (PORCINE) 40 MG/0.4 ML DISP.SYRIN SQ SCH (10:44)
[2023-05-09] MEDS: ASCORBIC ACID 250 MG TABLET (FP) PO SCH (10:44)
[2023-05-09] MEDS: POTASSIUM CHLORIDE TABS 20 MEQ TABLET.ER (FP) PO SCH (10:44)
[2023-05-09] MEDS: MULTIVITAMINS (DAILY MVI) TABLET (FP) PO SCH (10:44)
[2023-05-09 10:48] LABS: POTASSIUM 3.6 mmol/L (3.5-5.1)
[2023-05-09 10:49] LABS: ALBUMIN 1.8 g/dl (3.4-5.0); BLOOD UREA NITROGEN 12.4 mg/dL (7-18); CALCIUM 8.4 mg/dL (8.5-10.1)
[2023-05-09 10:52] LABS: CREATININE 0.3 mg/dL (0.55-1.3)
[2023-05-09 10:54] LABS: BILIRUBIN,TOTAL 1.2 mg/dL (0.2-1); TOT PROT 4.9 g/dl (6.4-8.2)
[2023-05-09] MEDS: D5-NS + 20 MEQ KCL - 20 MEQ/1,000 ML INFUS.BAG IV SCH (13:15)
[2023-05-09 15:24] VITALS: TEMP 98.7
[2023-05-09 21:00] VITALS: BP 118/61; PULSE 101; RESP 18
== END 2023-05-09 21:20 | disposition home health service (06) | DRG 640 ==
LOC: JER 13:30 → JERBED 18:51 → OBSVTOIN 22:15 → J5S 23:27
PROVIDERS: ADMIT Internal Medicine; ATTEND Internal Medicine
DX: E87.6 Hypokalemia (principal); L89.153 Pressure ulcer of sacral region, stage 3; L89.313 Pressure ulcer of right buttock, stage 3; I10 Essential (primary) hypertension; E11.9 Type 2 diabetes mellitus without complications; C50.919 Malignant neoplasm of unspecified site of unspecified female breast
CPT/HCPCS: 36415; 71045-TC-FY; 80053; 81003; 82553; 82803; 83605; 83735; 84100; 85025; 85610; 85730; 87040; 87086; 93005; 93010; 93970-TC; 97161-GP; 99285-25; G0378

== ENCOUNTER 2023-09-01 09:29 | Inpatient (IN) | payer MEDICARE, OTHER ==
[2023-09-01] MEDS ORDERED: SODIUM CHLORIDE 0.9% 500 ML INFUS.BAG IV ONE (09:57)
[2023-09-01 10:47] LABS: VENOUS O2 SATURATION 53.2 % (70-80); VENOUS PH 7.406 (7.310-7.410)
[2023-09-01 10:57] LABS: BASO % 0.5 % (0-2.0); EOS % 0.1 % (0-4.5); HEMATOCRIT 28.5 % (32.4-45.2); HEMOGLOBIN 9.3 GM/dL (10.7-15.3); LYMPH % 14.5 % (8-40); MCH 28.9 pg (25.7-33.7); MCHC 32.8 g/dl (32.0-36.0); MEAN CELL VOLUME 88.3 fl (80-96); MEAN PLT VOLUME 8.1 fl (7.5-11.1); MONO % 3.1 % (3.8-10.2); NEUT % 81.8 % (42.8-82.8); PLATELET COUNT 210 10^3/uL (134-434); RBC 3.22 M/mm3 (3.60-5.2); RDW 17.7 % (11.6-15.6)
[2023-09-01] MEDS ORDERED: VANCOMYCIN 1,000 MG in DEXTROSE 5%-WATER - 250 ML IVPB ONE (11:03)
[2023-09-01] MEDS ORDERED: PIPERACILLIN/TAZOB 4.5 GM 4.5 GM in DEXTROSE 5%-WATER 100 ML IVPB ONE (11:03)
[2023-09-01] MEDS ORDERED: PIPERACILLIN/TAZOB 4.5 GM 4.5 GM/100 ML BAG IVPB ONE (11:15)
[2023-09-01] MEDS ORDERED: VANCOMYCIN 1 GRAM (PRE-DOCKED) 1,000 MG/250 ML BAG IVPB ONE (11:15)
[2023-09-01 11:18] LABS: CHLORIDE 99 mmol/L (98-107); POTASSIUM 4.9 mmol/L (3.5-5.1); SODIUM 130 mmol/L (136-145)
[2023-09-01 11:20] LABS: CALCIUM 7.5 mg/dL (8.5-10.1)
[2023-09-01 11:21] LABS: ALBUMIN 1.4 g/dl (3.4-5.0); ANION GAP 12 mmol/L (4-13); BLOOD UREA NITROGEN 28.4 mg/dL (7-18); CO2 20 mmol/L (21-32); GLUCOSE,RANDOM 106 mg/dL (74-106)
[2023-09-01 11:24] LABS: SGOT/AST 48 U/L (15-37); SGPT/ALT 30 U/L (13-61)
[2023-09-01 11:25] LABS: TOT PROT 4.9 g/dl (6.4-8.2)
[2023-09-01 11:27] LABS: ALK PHOS 140 U/L (45-117)
[2023-09-01] MEDS ORDERED: PHENYLEPHRINE HCL 10 MG/1 ML SINGLE DOSE VIAL ONE (11:28)
[2023-09-01] MEDS ORDERED: NOREPINEPHRINE BITARTRATE/D5W 8 MG/250 ML BAG IVPB SCH (11:30)
[2023-09-01 11:35] VITALS: BMI 22.1
[2023-09-01 11:41] LABS: EPI CELLS >36 /uL (0-25.1); HYALINE CASTS 68 /uL (0-3.1); URINE APPEARANCE TURBID; URINE BILIRUBIN 2+ (NEGATIVE); URINE COLOR ORANGE; URINE GLUCOSE (UA) TRACE (NEGATIVE); URINE KETONE NEGATIVE (NEGATIVE); URINE LEUK ESTERASE 2+ (NEGATIVE); URINE NITRITE POSITIVE (NEGATIVE); URINE PROTEIN 1+ (NEGATIVE); URINE WBC 452 /uL (0-25.8)
[2023-09-01 11:44] LABS: URINE RBC 59.3 /uL (0-23.9)
[2023-09-01 11:45] LABS: URINE BACTERIA 28.1 /uL (0-1359)
[2023-09-01 11:57] LABS: YEAST NONE SEEN (NEGATIVE)
[2023-09-01 11:59] LABS: LACTIC ACID 3.8 mmol/L (0.4-2.0)
[2023-09-01 12:29] LABS: INR 1.61 (0.83-1.09); PROTHROMBIN TIME (PATIENT) 18.6 SEC (9.7-13.0)
[2023-09-01 12:32] LABS: ACTIVATED PTT 38.6 SECONDS (25.2-36.5)
[2023-09-01 12:59] LABS: LACTIC ACID 8.1 mmol/L (0.4-2.0)
[2023-09-01] MEDS ORDERED: HEPARIN NA (PORCINE) 5,000 UNITS/ML 1ML VIAL IVPUSH ONE (14:17)
[2023-09-01] MEDS ORDERED: HEPARIN NA (PORCINE) 5,000 UNITS/ML 1ML VIAL IVPUSH PRN ×2 (14:17)
[2023-09-01] MEDS ORDERED: HEPARIN INFUSION - 25,000 UNITS/500 ML INFUS.BAG IVPB SCH (14:30)
[2023-09-01] MEDS ORDERED: CEFTRIAXONE 1 GM in DEXTROSE 5%-WATER - 50 ML IVPB SCH (14:45)
[2023-09-01] MEDS ORDERED: VANCOMYCIN/WATER FOR INJ (PEG) 1,000 MG/200 ML BAG IVPB SCH (17:00)
[2023-09-01] MEDS ORDERED: VASOPRESSIN 20 UNITS/ML VIAL IV ONE (17:17)
[2023-09-01] MEDS ORDERED: VASOPRESSIN 40 UNITS/100 ML BAG IV SCH (17:30)
[2023-09-01] MEDS ORDERED: LACTATED RINGERS SOLUTION 1,000 ML/1,000 ML INFUS.BAG IV SCH (17:45)
[2023-09-01] MEDS: PIPERACILLIN/TAZOB 3.375 GM 3.375 GM in DEXTROSE 5%-WATER - 50 ML IVPB SCH (19:15)
[2023-09-01] MEDS ORDERED: SODIUM CHLORIDE 1,000 ML IV STA ×2 (19:19→22:33)
[2023-09-01] MEDS ORDERED: MUPIROCIN 2% TOPICAL OINTMENT FOR DECOLONIZATION NS SCH (22:00)
[2023-09-01] MEDS ORDERED: CHLORHEXIDINE GLUCONATE 4% CLEANSER FOR DECOLONIZATION TP SCH (22:00)
[2023-09-01] MEDS: HYDROCORTISONE SOD SUCCINATE 100 MG/2 ML VIAL IVPUSH SCH (23:00)
[2023-09-02 00:52] LABS: ARTERIAL BLD GAS O2 SATURATION 98.8 % (95-98); ARTERIAL BLOOD GAS PO2 139.9 mmHg (80-100); ARTERIAL BLOOD GAS pH 7.368 (7.350-7.450)
[2023-09-02 01:52] LABS: LACTIC ACID 7.5 mmol/L (0.4-2.0)
[2023-09-02] MEDS: PIPERACILLIN/TAZOB 3.375 GM 3.375 GM in DEXTROSE 5%-WATER - 50 ML IVPB SCH (01:56)
[2023-09-02] MEDS: HYDROCORTISONE SOD SUCCINATE 100 MG/2 ML VIAL IVPUSH SCH (02:56)
[2023-09-02 04:08] VITALS: BP 129/88; PULSE 112
[2023-09-02 04:17] VITALS: RESP 19; TEMP 97
[2023-09-02 06:47] LABS: HEMATOCRIT 23.9 % (32.4-45.2); HEMOGLOBIN 7.3 GM/dL (10.7-15.3); MCH 28.4 pg (25.7-33.7); MCHC 30.6 g/dl (32.0-36.0); MEAN PLT VOLUME 7.6 fl (7.5-11.1); PLATELET COUNT 162 10^3/uL (134-434); RBC 2.57 M/mm3 (3.60-5.2); RDW 17.5 % (11.6-15.6); WHITE BLOOD COUNT 16.2 K/mm3 (4.0-10.0)
[2023-09-02 06:54] LABS: ARTERIAL BLD GAS O2 SATURATION 96.6 % (95-98); ARTERIAL BLOOD GAS BASE EXCESS -24.5 mmol/L (-2-2); ARTERIAL BLOOD GAS pH 6.741 (7.350-7.450)
[2023-09-02 07:01] LABS: CHLORIDE 101 mmol/L (98-107); SODIUM 129 mmol/L (136-145)
[2023-09-02 07:03] LABS: BLOOD UREA NITROGEN 22.3 mg/dL (7-18); CALCIUM 7.2 mg/dL (8.5-10.1); CO2 14 mmol/L (21-32); GLUCOSE,RANDOM 148 mg/dL (74-106)
[2023-09-02 07:04] LABS: LACTIC ACID 11.5 mmol/L (0.4-2.0)
[2023-09-02 07:06] LABS: CREATININE 1.1 mg/dL (0.55-1.3)
[2023-09-02 07:07] LABS: PHOSPHOROUS 7.5 mg/dL (2.5-4.9); SGOT/AST 131 U/L (15-37); SGPT/ALT 41 U/L (13-61)
[2023-09-02 07:08] LABS: BILIRUBIN,TOTAL 0.7 mg/dL (0.2-1); TOT PROT 3.6 g/dl (6.4-8.2)
[2023-09-02 07:10] LABS: PROTHROMBIN TIME (PATIENT) 49.2 SEC (9.7-13.0)
[2023-09-02 07:23] LABS: ALBUMIN 0.9 g/dl (3.4-5.0); ALK PHOS 102 U/L (45-117); ANION GAP 14 mmol/L (4-13); POTASSIUM 6.6 mmol/L (3.5-5.1)
[2023-09-02 08:16] LABS: INR 4.3 (0.83-1.09)
== END 2023-09-02 06:11 | disposition expired | DRG 871 ==
LOC: JER 09:29 → JERBED 14:00 → JICU 15:46
PROVIDERS: ADMIT Internal Medicine Pulmonary Disease; ATTEND Internal Medicine Pulmonary Disease
PROC: 02HV33Z Insertion of Infusion Device into Superior Vena Cava, Percutaneous Approach (ICD-10-PCS; principal; 2023-09-01)
DX: A41.9 Sepsis, unspecified organism (principal); R65.21 Severe sepsis with septic shock; N39.0 Urinary tract infection, site not specified; J90 Pleural effusion, not elsewhere classified; E87.1 Hypo-osmolality and hyponatremia; E87.20 Acidosis, unspecified; I82.402 Acute embolism and thrombosis of unspecified deep veins of left lower extremity; Z68.22 Body mass index [BMI] 22.0-22.9, adult; E11.9 Type 2 diabetes mellitus without complications; J45.909 Unspecified asthma, uncomplicated; I10 Essential (primary) hypertension; I46.9 Cardiac arrest, cause unspecified; L89.152 Pressure ulcer of sacral region, stage 2
CPT/HCPCS: 0241U-QW; 36415; 36600; 71045-TC-FY; 80053; 81003; 82272; 82550; 82553; 82803; 82962; 83605; 83735; 84100; 84484; 85025; 85027; 85610; 85730; 86850; 86900; 86901; 87040; 87086; 93005; 93010; 93970-TC; 99285-25; J1644; J3490